=== PATIENT | female | born 1995 | race Caucasian/White ===

== ENCOUNTER 2019-03-06 20:30 | Emergency (ER) | payer OTHER ==
[~2019-03-06] VITALS: Ht 160 cm; Wt 52.6 kg
--- NOTE | 2019-03-06 21:16 | NUR ---
pt is here for lower left abd pain x 3 days. PT. REPORTS "A HARD BALL" TO LEFT LOWER ABD. STATES IT GOT REALLY BIG YESTERDAY AND "IT WAS HARD TO TENTERING MACHINE OFF BEARER MY BABIES". PAIN WORSE WITH STRAINING. C/O NAUSEA AND DIARRHEA. pt denies recent truama or travel. pt does report she has had mor issues going to the bathroom. pt connected to monitors and call light in reach.
[2019-03-06 21:21] LABS: MICROSCOPIC NOT IND
[2019-03-06] MEDS ORDERED: ACETAMINOPHEN 500 MG TABLET PO ONE (22:00)
[2019-03-06] MEDS ORDERED: KETOROLAC 30 MG/1 ML IM/IV ONE (22:00)
[2019-03-06] MEDS ORDERED: ACETAMINOPHEN 500 MG TABLET ONE (22:06)
[2019-03-06] MEDS ORDERED: KETOROLAC 30 MG/1 ML ONE (22:06)
[2019-03-06 22:09] VITALS: BP 108/56
--- NOTE | 2019-03-06 22:13 | NUR ---
medicated and updated vss
[2019-03-06 22:34] LABS: BASOPHILS # (AUTO) 0.02 x10^3/uL (0-0.1); BASOPHILS % (AUTO) 0 % (0-1); EOSINOPHILS # (AUTO) 0.22 x10^3/uL (0-0.4); EOSINOPHILS % (AUTO) 3 % (1-7); LYMPHOCYTES # (AUTO) 2.71 x10^3/uL (1-3.4); LYMPHOCYTES % (AUTO) 39 % (22-44); MD NO; MEAN CORPUSCULAR HGB CONC 33.1 g/dL (32.4-35.8); MEAN CORPUSCULAR VOLUME 84.7 fL (80-100); MEAN PLATELET VOLUME 8.9 fL (7.4-10.4); MONOCYTES # (AUTO) 0.42 x10^3/uL (0.2-0.8); MONOCYTES % (AUTO) 6 % (2-9); NEUTROPHILS % (AUTO) 51 % (42-75); PLATELET COUNT 227 x10^3/uL (130-400); RED BLOOD COUNT 4.05 x10^6/uL (3.82-5.3); RED CELL DISTRIBUTION WIDTH 15.2 % (9.6-15.2)
[2019-03-06 22:37] LABS: ALBUMIN 3.5 g/dL (3.4-5.0); ANION GAP 4 mmol/L (5-15); CALCIUM 8.4 mg/dL (8.5-10.1); CHLORIDE 111 mmol/L (98-107)
[2019-03-06 22:43] LABS: CREATININE 0.59 mg/dL (0.55-1.02)
--- NOTE | 2019-03-06 23:19 | NUR ---
Patient/Caregiver given discharge instructions and they have confirmed that they understand the instructions. Patient ambulatory with steady gait.
== END 2019-03-06 23:32 | disposition home or self-care (01) ==
LOC: ED 21:21
DX: N83.12 Corpus luteum cyst of left ovary (principal)
CPT/HCPCS: 36415; 76830; 80048; 81003; 82040; 84703; 85025; 96372; 99284; J1885

== ENCOUNTER 2019-04-15 20:14 | Emergency (ER) | payer MEDICAID ==
[~2019-04-15] VITALS: Ht 160 cm; Wt 52.0 kg
[2019-04-15 20:36] VITALS: BP 106/62
[2019-04-15 21:13] LABS: HCG UR SG 1.018 (1.003-1.030); MICROSCOPIC AUTO
[2019-04-15 21:14] LABS: CULTURE INDICATED? YES
--- NOTE | 2019-04-15 21:15 | NUR ---
PT REPORTS PAIN WITH URIANTION AND BLOOD IN URINE FOR 1.5 WEEKS. DENIES N/V/D
[2019-04-15] MEDS ORDERED: IBUPROFEN 600 MG TABLET ONE (21:17)
--- NOTE | 2019-04-15 21:21 | NUR ---
PT MEDICATED FOR PAIN PER EMAR
[2019-04-15] MEDS ORDERED: IBUPROFEN 200 MG TABLET PO ONE (21:30)
== END 2019-04-15 21:28 | disposition home or self-care (01) ==
LOC: ED 21:22
DX: N30.01 Acute cystitis with hematuria (principal)
CPT/HCPCS: 81001; 81025; 87077; 87086; 87186; 99283

== ENCOUNTER 2019-09-07 12:07 | Emergency (ER) | payer MEDICAID ==
[~2019-09-07] VITALS: Ht 160 cm; Wt 55.3 kg
[2019-09-07 12:30] VITALS: BP 112/69
[2019-09-07 13:22] LABS: RAPID INFLUENZA A Negative (Negative); RAPID INFLUENZA B Negative (Negative)
== END 2019-09-07 15:06 | disposition home or self-care (01) ==
LOC: ED 14:20
DX: J98.01 Acute bronchospasm (principal); B34.9 Viral infection, unspecified
CPT/HCPCS: 71046; 87400; 99284

== ENCOUNTER 2019-11-22 10:00 | Emergency (ER) | payer MEDICAID ==
[~2019-11-22] VITALS: Ht 160 cm; Wt 59.0 kg
[2019-11-22 10:06] VITALS: BP 113/64
[2019-11-22] MEDS ORDERED: DEXAMETHASONE 4 MG TABLET ONE (10:32)
[2019-11-22] MEDS ORDERED: DEXAMETHASONE 4 MG TABLET PO ONE (11:00)
== END 2019-11-22 11:12 | disposition home or self-care (01) ==
LOC: ED 11:10
DX: J02.0 Streptococcal pharyngitis (principal); Z98.51 Tubal ligation status
CPT/HCPCS: 99283